=== PATIENT | male | born 1970 | race Hispanic/Latino ===

== ENCOUNTER 2019-04-09 23:35 | Emergency (ER) | payer SELFPAY | END 2019-04-09 23:53 | disposition home or self-care (01) | LOC: ER 23:35 | DX: Z53.21 Procedure and treatment not carried out due to patient leaving prior to being seen by health care provider ==

== ENCOUNTER 2019-04-19 14:48 | Emergency (ER) | payer SELFPAY ==
--- NOTE | 2019-04-19 15:57 | ED.PDOC ---
History of Present Illness - General Chief Complaint: GI Problem Stated Complaint: vomiting,abd pain Time Seen by Provider: 04/19/19 15:02 Source: patient, EMS Exam Limitations: clinical condition, intoxication - History of Present Illness Initial Comments: Patient presents after being found in a public restroom holding his stomach. He tells me that he has mild stomach pain and has vomited once. He says he has had a little to drink. He is calm and well mannered but seems intoxicated with his speech. No other history available. Timing/Duration: unsure Severity: mild Improving Factors: nothing Worsening Factors: nothing Associated Symptoms: other - as in HPI Allergies/Adverse Reactions: Allergies NO KNOWN ALLERGY Allergy (Verified 02/25/16 16:59) Home Medications: Ambulatory Orders NK 02/25/16 Review of Systems - Review of Systems Unable to Obtain Due To: condition Past Medical History (General) - Patient Medical History Hx Congestive Heart Failure: No Hx Hypertension: No Hx Diabetes: No Hx MRSA: No Surgical History: noncontributory - Vaccination History Hx Tetanus, Diphtheria Vaccination: No Hx Influenza Vaccination: No Hx Pneumococcal Vaccination: No - Social History Hx Tobacco Use: No Hx Alcohol Use: Yes Hx Substance Use: - not known Hx Substance Use Treatment: No Hx Depression: No - Female History Patient : No Family Medical History - Family History Mother Family History: Unknown Living Status: Unknown Physical Exam - Physical Exam General Appearance: Alert Eye Exam: bilateral normal Ears, Nose, Throat: hearing grossly normal, normal ENT inspection Neck: non-tender, full range of motion, supple Respiratory: chest non-tender Cardiovascular/Chest: normal peripheral pulses, regular rate, rhythm Gastrointestinal/Abdominal: normal bowel sounds, non tender, soft Back Exam: normal inspection, no CVA tenderness Extremity: normal range of motion, non-tender, normal inspection Neurologic: no motor/sensory deficits, alert - intoxicated, oriented x 3 Skin Exam: normal color Lymphatic: no adenopathy Progress - Progress Progress: 04/20/19 03:31 Laboratory Tests 04/19/19 04/19/19 04/19/19 15:15 15:15 15:15 WBC 4.0 L RBC 3.52 L Hgb 12.0 L Hct 35.2 L MCV 100.0 H MCH 34.0 H MCHC 34.0 RDW 13.2 Plt Count 187 MPV 7.5 Absolute Neuts (auto) 2.40 Absolute Lymphs (auto) 1.30 Absolute Monos (auto) 0.30 Absolute Eos (auto) 0.00 Absolute Basos (auto) 0.00 Neutrophils % 60.6 Lymphocytes % 31.1 Monocytes % 7.1 Eosinophils % 0.4 L Basophils % 0.8 Sodium 143 Potassium 3.0 L Chloride 108 Carbon Dioxide 21 Anion Gap 17.0 BUN 10 Creatinine 0.73 BUN/Creatinine Ratio 13.7 Random Glucose 96 Serum Osmolality 283.9 Calcium 8.0 L Total Bilirubin 0.6 AST 26 ALT 14 Alkaline Phosphatase 51 Creatine Kinase 196 H CK-MB (CK-2) 1.7 CK-MB (CK-2) % Not Reportable Troponin I < 0.02 Serum Total Protein 6.3 L Albumin 3.8 Globulin 2.5 Albumin/Globulin Ratio 1.5 Lipase Urine Color Urine Appearance Urine pH Ur Specific [place] Urine Protein Urine Glucose (UA) Urine Ketones Urine Blood Urine Nitrite Urine Bilirubin Urine Urobilinogen Ur Leukocyte Esterase Urine RBC Urine WBC Ur Epithelial Cells Amorphous Sediment Urine Bacteria Urine Opiates Screen Urine Barbiturates Ur Phencyclidine Scrn U Amphetamin/Meth Scrn U Benzodiazepines Scrn U Cocaine Metab Screen U Cannabinoids Screen Ethyl Alcohol 04/19/19 04/19/19 04/19/19 15:15 15:15 19:06 WBC RBC Hgb Hct MCV MCH MCHC RDW Plt Count MPV Absolute Neuts (auto) Absolute Lymphs (auto) Absolute Monos (auto) Absolute Eos (auto) Absolute Basos (auto) Neutrophils % Lymphocytes % Monocytes % Eosinophils % Basophils % Sodium Potassium Chloride Carbon Dioxide Anion Gap BUN Creatinine BUN/Creatinine Ratio Random Glucose Serum Osmolality Calcium Total Bilirubin AST ALT Alkaline Phosphatase Creatine Kinase CK-MB (CK-2) CK-MB (CK-2) % Troponin I Serum Total Protein Albumin Globulin Albumin/Globulin Ratio Lipase 45 Urine Color Urine Appearance Urine pH Ur Specific [place] Urine Protein Urine Glucose (UA) Urine Ketones Urine Blood Urine Nitrite Urine Bilirubin Urine Urobilinogen Ur Leukocyte Esterase Urine RBC Urine WBC Ur Epithelial Cells Amorphous Sediment Urine Bacteria Urine Opiates Screen Negative Urine Barbiturates Negative Ur Phencyclidine Scrn Negative U Amphetamin/Meth Scrn Negative U Benzodiazepines Scrn Negative U Cocaine Metab Screen Negative U Cannabinoids Screen Negative Ethyl Alcohol 387.50 H* 04/19/19 04/19/19 04/19/19 19:06 19:36 19:36 WBC RBC Hgb Hct MCV MCH MCHC RDW Plt Count MPV Absolute Neuts (auto) Absolute Lymphs (auto) Absolute Monos (auto) Absolute Eos (auto) Absolute Basos (auto) Neutrophils % Lymphocytes % Monocytes % Eosinophils % Basophils % Sodium 143 Potassium 3.7 Chloride 109 Carbon Dioxide 23 Anion Gap 14.7 BUN 9 Creatinine 0.83 BUN/Creatinine Ratio 10.8 Random Glucose 93 Serum Osmolality 283.4 Calcium 7.9 L Total Bilirubin AST ALT Alkaline Phosphatase Creatine Kinase CK-MB (CK-2) CK-MB (CK-2) % Troponin I Serum Total Protein Albumin Globulin Albumin/Globulin Ratio Lipase Urine Color Yellow Urine Appearance Clear Urine pH 5.5 Ur Specific [place] 1.010 Urine Protein Negative Urine Glucose (UA) Negative Urine Ketones Negative Urine Blood Negative Urine Nitrite Negative Urine Bilirubin Negative Urine Urobilinogen 0.2 Ur Leukocyte Esterase Negative Urine RBC 0 Urine WBC 0 Ur Epithelial Cells 0 Amorphous Sediment 1+ Urine Bacteria 0 Urine Opiates Screen Urine Barbiturates Ur Phencyclidine Scrn U Amphetamin/Meth Scrn U Benzodiazepines Scrn U Cocaine Metab Screen U Cannabinoids Screen Ethyl Alcohol 318.40 H* 04/19/19 04/19/19 04/20/19 23:00 23:00 03:03 WBC RBC Hgb Hct MCV MCH MCHC RDW Plt Count MPV Absolute Neuts (auto) Absolute Lymphs (auto) Absolute Monos (auto) Absolute Eos (auto) Absolute Basos (auto) Neutrophils % Lymphocytes % Monocytes % Eosinophils % Basophils % Sodium Potassium Chloride Carbon Dioxide Anion Gap BUN Creatinine BUN/Creatinine Ratio Random Glucose Serum Osmolality Calcium 8.1 L Total Bilirubin AST ALT Alkaline Phosphatase Creatine Kinase CK-MB (CK-2) CK-MB (CK-2) % Troponin I Serum Total Protein Albumin Globulin Albumin/Globulin Ratio Lipase Urine Color Urine Appearance Urine pH Ur Specific [place] Urine Protein Urine Glucose (UA) Urine Ketones Urine Blood Urine Nitrite Urine Bilirubin Urine Urobilinogen Ur Leukocyte Esterase Urine RBC Urine WBC Ur Epithelial Cells Amorphous Sediment Urine Bacteria Urine Opiates Screen Urine Barbiturates Ur Phencyclidine Scrn U Amphetamin/Meth Scrn U Benzodiazepines Scrn U Cocaine Metab Screen U Cannabinoids Screen Ethyl Alcohol 260.90 H* 194.30 H* Patient received a Banana bag one liter IV x one, potassium chloride 40 meq po x one, and calcium gluconate 1 gram IV x one in the E.D. He did not have any episodes of N/V. This appears to be completely from alcohol intoxication. He did not wish to detox and was therefore discharged when his BAL was less than 200. Care instructions given. E.R. warnings given. Questions were elicited and answered. Patient voiced understanding and agreement with the plan. Departure - Departure Clinical Impression: Intoxication Disposition: Discharge to Home or Self Care Condition: Good Departure Forms: ED Discharge - Pt. Copy, Patient Portal Self Enrollment Diet: other - consider stopping alcohol Activity: increase activity as tolerated Referrals: Leonidas Son MD [Primary Care Provider] - 1-2 Weeks Home Medications: Ambulatory Orders NK 02/25/16 Additional Instructions: Consider stopping alcohol drinking. You should return to the hospital to be admitted for detoxification. Return to the emergency room for tremors, sweats, or seizures.
[2019-04-19] MEDS ORDERED: MULTIPLE VITAMIN INJ 10 ML, THIAMINE HCL INJ 100 MG in SODIUM CHLORIDE 0.9% 1000ML 1,00... IVS SCH (16:00)
[2019-04-19] MEDS ORDERED: THIAMINE HCL INJ 100 MG/ML VIAL ONE (16:38)
[2019-04-19] MEDS ORDERED: SODIUM CHLORIDE 0.9% 1000ML 1,000 ML ONE (16:38)
[2019-04-19] MEDS ORDERED: MULTIPLE VITAMIN 10 ML VIAL ONE (16:38)
[2019-04-19] MEDS ORDERED: POTASSIUM CHLORIDE 20 MEQ TAB PO ONE (17:01)
[2019-04-19] MEDS ORDERED: CALCIUM GLUCONATE INJ 1 GM in SODIUM CHLORIDE 0.9% 50ML 50 ML IVPB ONE (20:33)
[2019-04-19] MEDS ORDERED: SODIUM CHLORIDE 0.9% 500ML 500 ML IVS ONE (20:35)
[2019-04-19] MEDS ORDERED: CALCIUM GLUCONATE INJ 1 GM/10 ML VIAL ONE (20:45)
[2019-04-19] MEDS ORDERED: SODIUM CHLORIDE 0.9% 50ML 50 ML ONE (20:46)
[2019-04-20 01:02] VITALS: O2SAT 100
[2019-04-20 03:44] VITALS: BP 95/70; TEMP 98.5
== END 2019-04-20 03:44 | disposition home or self-care (01) ==
LOC: ER 14:48
DX: F10.129 Alcohol abuse with intoxication, unspecified (principal); R11.10 Vomiting, unspecified; R10.9 Unspecified abdominal pain
CPT/HCPCS: 36415; 80048; 80053; 80307; 80320; 81001; 82310; 82550; 82553; 83690; 84484; 85025; A4216; J3411; J7030; J7040